=== PATIENT | male | born 1995 | race African-American/Black ===

== ENCOUNTER 2016-09-30 00:55 | Emergency (ER) | payer OTHER ==
[~2016-09-30] VITALS: Ht 190.5 cm; Wt 113.4 kg
[2016-09-30] MEDS ORDERED: TESSALON PERLE100 MG PO (01:08)
[2016-09-30 01:31] VITALS: BP 130/80
== END 2016-09-30 01:45 | disposition home or self-care (01) ==
LOC: ER 00:55
DX: J06.9 Acute upper respiratory infection, unspecified (principal); H92.09 Otalgia, unspecified ear; J45.909 Unspecified asthma, uncomplicated; F17.210 Nicotine dependence, cigarettes, uncomplicated

== ENCOUNTER 2018-08-05 13:43 | Emergency (ER) | payer OTHER ==
[~2018-08-05] VITALS: Ht 190.5 cm; Wt 117.0 kg
[~2018-08-05 13:43] MED LIST: TESSALON PERLE100 MG PO
[2018-08-05 13:53] VITALS: BP 119/71
== END 2018-08-05 14:26 | disposition home or self-care (01) ==
LOC: ER 13:43
DX: S61.312A Laceration without foreign body of right middle finger with damage to nail, initial encounter (principal); F17.210 Nicotine dependence, cigarettes, uncomplicated; J45.909 Unspecified asthma, uncomplicated; W26.0XXA Contact with knife, initial encounter; Y92.89 Other specified places as the place of occurrence of the external cause; Y93.89 Activity, other specified; Y99.8 Other external cause status